=== PATIENT | male | born 1980 | race Caucasian/White ===

== ENCOUNTER 2025-04-10 20:23 | Inpatient (IN) | payer OTHER, MEDICAID ==
[~2025-04-10] VITALS: Ht 172.7 cm; Wt 147.7 kg
[2025-04-10 18:38] VITALS: PULSE 113; RESP 23; O2SAT 99
[2025-04-10 20:00] VITALS: PULSE 113; RESP 23; O2SAT 91; O2SAT 99
[~2025-04-10 20:23] MED LIST: BUME2TAB5 PO; HYDR25TA PO; LACO50TA16 PO; LISI20TA PO; MAGN400T57 PO; METO2.5T2 PO; POTA-185 PO; RANI150T7 PO
[2025-04-10] MEDS ORDERED: CALCIUM CHLORIDE 100 MG/ML 10 ML SYRINGE IVP ONE (20:32)
[2025-04-10] MEDS ORDERED: SODIUM BICARBONATE [ADULT] 8.4% 50 MEQ/50 ML SYRINGE IVP ONE (20:32)
[2025-04-10 20:54] LABS: PLATELET COUNT (AUTO) 248 K/uL (150-450); RED BLOOD CELL COUNT(AUTO) 5.30 MIL/uL (4.50-5.90); RED CELL DISTRIBUTION WIDTH 23.5 % (11.5-14.5); WHITE BLOOD COUNT (AUTO) 7.2 K/uL (4.5-11.0)
[2025-04-10 21:04] LABS: CALCIUM, TOTAL 9.8 mg/dL (8.8-10.5); CREATININE 2.33 mg/dL (0.60-1.30); GLOMERULAR FILTR. RATE CALC 30 mL/min (>60); GLUCOSE,RANDOM 111 mg/dL (70-110); SODIUM SERUM 139 mmol/L (136-145); UREA NITROGEN, BLOOD 70 mg/dL (7-18)
[2025-04-10 21:09] LABS: CREATINE KINASE, TOTAL ONLY 145 U/L (39-308)
[2025-04-10 21:13] LABS: TROPONIN I-HIGH SENSITIVITY 67 ng/L (<76)
[2025-04-10] MEDS: INSULIN REGULAR, HUMAN 100 UNITS/ML IVP ONE (21:32)
[2025-04-10] MEDS: DEXTROSE 50%-WATER 25 GM/50 ML SYRINGE IVP ONE (21:33)
[2025-04-10 22:05] VITALS: PULSE 96; RESP 26; O2SAT 100
[2025-04-10] MEDS: SODIUM BICARBONATE [ADULT] 8.4% 50 MEQ/50 ML SYRINGE IVP ONE (23:00)
[2025-04-10] MEDS: CALCIUM CHLORIDE 100 MG/ML 10 ML SYRINGE IVP ONE (23:00)
[2025-04-10] MEDS ORDERED: ZOLPIDEM TARTRATE 5 MG TABLET PO PRN (23:45)
[2025-04-10] MEDS ORDERED: BISACODYL 10 MG RECTAL RECTAL SUPPOSITORY PR PRN (23:45)
[2025-04-10] MEDS ORDERED: DEXTROSE 50%-WATER 25 GM/50 ML SYRINGE IVP PRN (23:45)
[2025-04-10] MEDS ORDERED: [UNRECOGNIZED DRUG - OTHER] PO SCH (23:45)
[2025-04-10] MEDS ORDERED: INSULIN LISPRO 100 UNITS/ML SQ PRN (23:45)
[2025-04-10] MEDS ORDERED: ALBUTEROL SULFATE 2.5 MG/0.5 ML NEB SOLUTION NEB PRN (23:45)
[2025-04-10] MEDS ORDERED: ACETAMINOPHEN 325 MG TABLET PO PRN (23:45)
[2025-04-10] MEDS ORDERED: IPRATROPIUM BROMIDE 0.5 MG/2.5 ML NEB SOLUTION NEB PRN (23:45)
[2025-04-10] MEDS ORDERED: ONDANSETRON HCL 4 MG/2 ML VIAL IVP PRN (23:45)
[2025-04-10] MEDS ORDERED: MAGNESIUM HYDROXIDE SUSPENSION 30 ML UDCUP PO PRN (23:45)
[2025-04-11] VITALS (9 sets, daily range): BP systolic 80–106; BP diastolic 42–83; PULSE 68–97; RESP 18–22; TEMP 95.5–98.1; O2SAT 96–100
[2025-04-11] MEDS: HEPARIN SODIUM,PORCINE 5,000 UNITS/ML VIAL SQ SCH
[2025-04-11 07:09] LABS: PLATELET COUNT (AUTO) 199 K/uL (150-450); RED BLOOD CELL COUNT(AUTO) 5.11 MIL/uL (4.50-5.90); RED CELL DISTRIBUTION WIDTH 23.7 % (11.5-14.5); WHITE BLOOD COUNT (AUTO) 5.9 K/uL (4.5-11.0)
[2025-04-11 07:25] LABS: CALCIUM, TOTAL 8.7 mg/dL (8.8-10.5); CREATININE 2.31 mg/dL (0.60-1.30); GLOMERULAR FILTR. RATE CALC 31.0 mL/min (>60); GLUCOSE,RANDOM 100.0 mg/dL (70-110); SODIUM SERUM 141.0 mmol/L (136-145); TOTAL PROTEIN, SERUM 5.5 g/dL (6.4-8.2); UREA NITROGEN, BLOOD 64.0 mg/dL (7-18)
[2025-04-11 07:34] LABS: ASPARTATE AMINOTRANSFERASE 32.0 U/L (15-37)
[2025-04-11 08:22] LABS: RBC MORPHOLOGY COMMENT ABNORMAL RBC MORPH
[2025-04-11] MEDS: LACOSAMIDE 50 MG TABLET PO SCH (08:57)
[2025-04-11] MEDS: PANTOPRAZOLE SODIUM 40 MG DR TABLET PO SCH (08:57)
[2025-04-11] MEDS ORDERED: BUMETANIDE 0.25 MG/ML 4 ML VIAL IVP SCH (09:00)
[2025-04-11 11:30] LABS: GLUCOMETER DEV NAME(LOC) 5N.1D; GLUCOSE,POINT OF CARE 102 MG/DL (70-110)
[2025-04-11] MEDS: AMIODARONE HCL 200 MG TABLET PO ONE (12:28)
[2025-04-11] MEDS: APIXABAN 5 MG TABLET PO ONE (12:28)
[2025-04-11] MEDS: MIDODRINE HCL 5 MG TABLET PO ONE (12:28)
[2025-04-11] MEDS: BUMETANIDE 0.25 MG/ML 4 ML VIAL IVP SCH (16:00)
[2025-04-11] MEDS: MIDODRINE HCL 5 MG TABLET PO SCH (20:24)
[2025-04-11] MEDS: APIXABAN 5 MG TABLET PO SCH (20:24)
[2025-04-12] VITALS: BP 90/61; PULSE 72; RESP 18; TEMP 97.7; O2SAT 97
[2025-04-12 03:26] LABS: GLUCOMETER DEV NAME(LOC) 5N.1D; GLUCOSE,POINT OF CARE 119 MG/DL (70-110)
[2025-04-12 03:41] LABS: GLUCOMETER DEV NAME(LOC) 5S.1D; GLUCOSE,POINT OF CARE 106 MG/DL (70-110)
[2025-04-12 04:45] VITALS: BP 101/53; PULSE 104; RESP 18; TEMP 97.5; O2SAT 97
[2025-04-12 08:10] LABS: GLUCOMETER DEV NAME(LOC) 5S.2D; GLUCOSE,POINT OF CARE 97 MG/DL (70-110)
[2025-04-12 08:14] VITALS: BP 83/61; PULSE 98; RESP 16; TEMP 97.6; O2SAT 98
[2025-04-12 10:46] VITALS: BP 113/78; PULSE 73; RESP 18; TEMP 97.5; O2SAT 98
[2025-04-12] MEDS: AMIODARONE HCL 200 MG TABLET PO SCH (10:53)
[2025-04-12] MEDS ORDERED: MIDO5TAB29 PO (11:57)
[2025-04-12] MEDS ORDERED: AMIO200T73 PO (11:57)
[2025-04-12] MEDS ORDERED: APIX5TAB PO (11:57)
[2025-04-12 12:00] VITALS: BP 106/64; PULSE 77; RESP 18; TEMP 97.7; O2SAT 99
[2025-04-12 14:19] LABS: PLATELET COUNT (AUTO) 206 K/uL (150-450); RED BLOOD CELL COUNT(AUTO) 5.18 MIL/uL (4.50-5.90); RED CELL DISTRIBUTION WIDTH 23.6 % (11.5-14.5); WHITE BLOOD COUNT (AUTO) 5.8 K/uL (4.5-11.0)
[2025-04-12 14:26] LABS: CALCIUM, TOTAL 8.4 mg/dL (8.8-10.5); CREATININE 2.48 mg/dL (0.60-1.30); GLOMERULAR FILTR. RATE CALC 28.0 mL/min (>60); GLUCOSE,RANDOM 145.0 mg/dL (70-110); SODIUM SERUM 133.0 mmol/L (136-145); UREA NITROGEN, BLOOD 70.0 mg/dL (7-18)
[2025-04-12 14:30] LABS: ASPARTATE AMINOTRANSFERASE 26.0 U/L (15-37); TOTAL PROTEIN, SERUM 5.5 g/dL (6.4-8.2)
[2025-04-12 14:55] LABS: RBC MORPHOLOGY COMMENT ABNORMAL RBC MORPH
[2025-04-12 15:11] VITALS: BP 99/65; PULSE 89; RESP 18; TEMP 97.5; O2SAT 100
== END 2025-04-12 17:20 | disposition short-term general hospital (02) | DRG 640 ==
LOC: EMS 20:23 → EDH 22:44 → 5S 23:45
PROVIDERS: ADMIT Hospitalist; ATTEND Hospitalist
PROC: 5A09357 Assistance with Respiratory Ventilation, Less than 24 Consecutive Hours, Continuous Positive Airway Pressure (ICD-10-PCS; principal; 2025-04-10)
PROC: 5A09357 Assistance with Respiratory Ventilation, Less than 24 Consecutive Hours, Continuous Positive Airway Pressure (ICD-10-PCS; 2025-04-11)
DX: E87.5 Hyperkalemia (principal); I50.23 Acute on chronic systolic (congestive) heart failure; J96.00 Acute respiratory failure, unspecified whether with hypoxia or hypercapnia; Z68.42 Body mass index [BMI] 45.0-49.9, adult; I95.9 Hypotension, unspecified; N18.9 Chronic kidney disease, unspecified; Z66 Do not resuscitate; E66.01 Morbid (severe) obesity due to excess calories; I48.91 Unspecified atrial fibrillation; G47.33 Obstructive sleep apnea (adult) (pediatric); Z88.5 Allergy status to narcotic agent; Z88.1 Allergy status to other antibiotic agents; Z86.73 Personal history of transient ischemic attack (TIA), and cerebral infarction without residual deficits; Z79.01 Long term (current) use of anticoagulants; Z91.199 Patient's noncompliance with other medical treatment and regimen due to unspecified reason; Z88.8 Allergy status to other drugs, medicaments and biological substances; Z79.899 Other long term (current) drug therapy
CPT/HCPCS: 70496; 71045; 80048; 80053; 82550; 82962; 83735; 83880; 84484; 85025; 85610; 85730; 87081; 93005; 94660; 99285; G0378; J1250; J1644; J1815; J2405; J3490; 36415-L1; 36415-TC; 70450; 70450-TC